=== PATIENT | female | born 1930 | race African-American/Black ===

== ENCOUNTER 2021-01-25 14:58 | Observation (INO) ==
[2021-01-25 16:23] LABS: Bilirubin,Urine Negative (Negative); Blood, Urine Negative (Negative); Glucose,Urine (UA) Negative (Negative); Hyaline Casts,Urine 24 /LPF (0-3); Ketones,Urine Negative (Negative); Mucus,Urine Occasional /LPF (Occasional); Nitrite,Urine Negative (Negative); Protein,Urine Negative; RBC,Urine <1 /HPF (0-4); Squamous Epithelial Cell,Urine Occasional /HPF (0-10); Urine Appearance CLEAR (Clear); Urine Color Yellow (Yellow); Urine Specific Gravity 1.021 (1.001-1.035); Urine Urobilinogen < 2.0 EU/DL (0.2-1.0)
[2021-01-25 16:47] LABS: Albumin 3.7 G/DL (3.4-5.0); Bilirubin,Total 0.7 MG/DL (0.20-1.00); Calcium 10.3 MG/DL (8.5-10.1); Osmolality,Calculated 263.8 MOS/KG (273-304); Potassium 3.7 MMOL/L (3.5-5.1); Total Protein 8.6 G/DL (6.4-8.2)
[2021-01-25 17:14] LABS: Basophils % 0.1 % (0.0-0.8); Eosinophils % 0.2 % (0.00-10.9); Hemoglobin 14.4 GM/DL (12.0-16.0); Immature Granulocytes % 0.5 %; Immature Granulocytes Absolute 0.05 #; Lymphocytes # 1.4 10*3/uL (1.4-4.0); Lymphocytes % 13.9 % (21.3-54.2); Mean Corpuscular HGB Conc 32.7 GM/DL (32-36); Mean Corpuscular Volume 86.3 FL (87-102); Neutrophils % 77.3 % (38.7-73.9); Platelet Count 242 T/CUMM (130-400); Red Cell Distribution Width 12.7 % (9.3-17.3)
[2021-01-25] MEDS ORDERED: SODIUM CHLORIDE 0.9% 1,000 ML IV STA (17:28)
[2021-01-25] MEDS ORDERED: DEXTROSE 50% 25 GM/50 ML VIAL IV PRN (17:54)
[2021-01-25] MEDS ORDERED: ACETAMINOPHEN 325 MG TABLET PO PRN (17:54)
[2021-01-25] MEDS ORDERED: ONDANSETRON 4 MG/2 ML VIAL IV PRN (17:54)
[2021-01-25] MEDS ORDERED: GLUCAGON 1 MG VIAL IM PRN (17:54)
[2021-01-25] MEDS ORDERED: ENOXAPARIN 40 MG/0.4 ML SYRINGE SUBCUT SCH (18:00)
[2021-01-25] MEDS: SODIUM CHLORIDE 0.9% 1,000 ML IV SCH (20:15)
[2021-01-25] MEDS: INSULIN REGULAR 100 UNIT/ML SUBCUT SCH (23:08)
[2021-01-26 07:42] LABS: Bilirubin,Total 0.7 MG/DL (0.20-1.00); Calcium 9.3 MG/DL (8.5-10.1); Total Protein 6.7 G/DL (6.4-8.2)
[2021-01-26] MEDS ORDERED: SODIUM CHLOR 0.9% KCL 40 MEQ 40 MEQ/1,000 ML BAG IV SCH (08:30)
[2021-01-26] MEDS ORDERED: PANTOPRAZOLE 40 MG TABLET PO SCH (09:00)
[2021-01-26] MEDS ORDERED: ASPIRIN EC 81 MG TABLET PO SCH (09:00)
[2021-01-26] MEDS ORDERED: ENALAPRIL 20 MG TABLET PO SCH (09:00)
[2021-01-26] MEDS: SODIUM CHLORIDE 0.9% 1,000 ML IV SCH (09:15)
[2021-01-26] MEDS: INSULIN REGULAR 100 UNIT/ML SUBCUT SCH ×2 (09:16→13:55)
[2021-01-26] MEDS ORDERED: POTASSIUM CHLORIDE 20 MEQ TABLET PO ONE (10:13)
[2021-01-26 12:26] VITALS: BP 129/81
[2021-01-26] MEDS ORDERED: SIMVASTATIN 20 MG TABLET PO SCH (19:00)
== END 2021-01-26 14:15 | disposition home health service (06) ==
LOC: EDUNIT# → EDBD → N.ED 14:58 → N.EDINP 14:58 → N.4E 21:36
PROVIDERS: ADMIT Internal Medicine; ATTEND Internal Medicine

== ENCOUNTER 2021-02-15 11:09 | Observation (INO) ==
[2021-02-15] MEDS ORDERED: SODIUM CHLORIDE 0.9% 500 ML IV STA (12:36)
[2021-02-15 12:44] LABS: Basophils % 0.2 % (0.0-0.8); Eosinophils % 0.1 % (0.00-10.9); Hematocrit 44.5 VOL% (35.7-47.0); Hemoglobin 14.4 GM/DL (12.0-16.0); Immature Granulocytes % 0.8 %; Lymphocytes # 1.4 10*3/uL (1.4-4.0); Lymphocytes % 11.4 % (21.3-54.2); Mean Corpuscular HGB Conc 32.4 GM/DL (32-36); Mean Corpuscular Volume 88.5 FL (87-102); Monocytes % 5.9 % (1.7-12.7); Neutrophils % 81.6 % (38.7-73.9); Platelet Count 271 T/CUMM (130-400); Red Blood Count 5.03 MC/CUMM (3.8-5.5); Red Cell Distribution Width 14.3 % (9.3-17.3); White Blood Count 12.4 T/CUMM (4-12)
[2021-02-15 12:54] LABS: INR 1.1; PT Patient Result 12.4 SECS (10.5-12.0); Partial Thromboplastin Time 22.2 SECS (23.9-33.8)
[2021-02-15 13:14] LABS: Albumin 3.3 G/DL (3.4-5.0); Bilirubin,Total 0.6 MG/DL (0.20-1.00); Calcium 10.7 MG/DL (8.5-10.1); Osmolality,Calculated 288.4 MOS/KG (273-304); Potassium 3.7 MMOL/L (3.5-5.1); Total Protein 7.9 G/DL (6.4-8.2)
[2021-02-15 13:21] LABS: Bilirubin,Urine Negative (Negative); Blood, Urine Negative (Negative); Glucose,Urine (UA) Negative (Negative); Ketones,Urine 20 mg/dL (Negative); Mucus,Urine Many /LPF (Occasional); Nitrite,Urine Negative (Negative); Protein,Urine 30 MG/DL; RBC,Urine 1 /HPF (0-4); Urine Appearance CLEAR (Clear); Urine Color Yellow (Yellow); Urine Specific Gravity 1.027 (1.001-1.035); Urine Urobilinogen < 2.0 EU/DL (0.2-1.0)
[2021-02-15] MEDS ORDERED: GLUCAGON 1 MG VIAL IM PRN (14:39)
[2021-02-15] MEDS ORDERED: DEXTROSE 50% 25 GM/50 ML VIAL IV PRN (14:39)
[2021-02-15] MEDS ORDERED: ACETAMINOPHEN 325 MG TABLET PO PRN (14:39)
[2021-02-15] MEDS ORDERED: hydrALAZINE 20 MG/1 ML VIAL IV PRN (14:39)
[2021-02-15] MEDS ORDERED: ONDANSETRON 4 MG/2 ML VIAL IV PRN (14:39)
[2021-02-15] MEDS ORDERED: ALBUTEROL 2.5 MG/3 ML NEB RESP TX PRN (14:39)
[2021-02-15] MEDS ORDERED: DOCUSATE SODIUM 100 MG CAPSULE PO PRN (14:39)
[2021-02-15] MEDS ORDERED: MAGNESIUM SULF RIDER 2 GM/50 ML PREMIX IV PRN (14:56)
[2021-02-15] MEDS ORDERED: MAGNESIUM SULF RIDER 4 GM/100 ML PREMIX IV PRN (14:56)
[2021-02-15] MEDS: SODIUM CHLORIDE 0.9% 1,000 ML IV SCH (15:30)
[2021-02-15] MEDS: CIPROFLOXACIN INJ 400 MG/200 ML PREMIX IV SCH (15:30)
[2021-02-15] MEDS: prednisoLONE ACETATE 1% OPH SUSP 5 ML BOTTLE LEFT EYE SCH ×2 (19:46→20:39)
[2021-02-15] MEDS: metroNIDAZOLE INJ 500 MG/100 ML PREMIX IV SCH (19:46)
[2021-02-15] MEDS: DORZOLAMIDE/TIMOLOL OPH SOLN 10 ML BOTTLE LEFT EYE SCH (20:39)
[2021-02-15] MEDS: ENOXAPARIN 40 MG/0.4 ML SYRINGE SUBCUT SCH (20:39)
[2021-02-15] MEDS: DONEPEZIL 10 MG TABLET PO SCH ×2 (20:39)
[2021-02-15] MEDS: traZODone 50 MG TABLET PO SCH ×2 (20:39)
[2021-02-15] MEDS: MEMANTINE 10 MG TABLET PO SCH ×2 (20:39)
[2021-02-16] MEDS: metroNIDAZOLE INJ 500 MG/100 ML PREMIX IV SCH ×4 (02:24→20:25)
[2021-02-16] MEDS: CIPROFLOXACIN INJ 400 MG/200 ML PREMIX IV SCH ×2 (03:29→14:34)
[2021-02-16 04:53] LABS: Basophils % 0.2 % (0.0-0.8); Eosinophils # 0.1 10*3/uL (0.0-0.87); Eosinophils % 0.5 % (0.00-10.9); Hematocrit 43.9 VOL% (35.7-47.0); Hemoglobin 13.5 GM/DL (12.0-16.0); Immature Granulocytes % 0.7 %; Immature Granulocytes Absolute 0.07 #; Lymphocytes # 1.6 10*3/uL (1.4-4.0); Lymphocytes % 16.5 % (21.3-54.2); Mean Corpuscular HGB Conc 30.8 GM/DL (32-36); Mean Corpuscular Volume 90.9 FL (87-102); Mean Platelet Volume 10.8 FL (9.6-12.0); Monocytes % 6.4 % (1.7-12.7); Neutrophils % 75.7 % (38.7-73.9); Platelet Count 219 T/CUMM (130-400); Red Blood Count 4.83 MC/CUMM (3.8-5.5); Red Cell Distribution Width 14.1 % (9.3-17.3); White Blood Count 9.8 T/CUMM (4-12)
[2021-02-16 05:15] LABS: Calcium 10.2 MG/DL (8.5-10.1); Osmolality,Calculated 283.4 MOS/KG (273-304); Potassium 3.2 MMOL/L (3.5-5.1); Risk Ratio 4.69; VLDL Cholesterol 20.8 MG/DL
[2021-02-16] MEDS: SODIUM CHLORIDE 0.9% 1,000 ML IV SCH ×4 (07:17→23:36)
[2021-02-16] MEDS: DORZOLAMIDE/TIMOLOL OPH SOLN 10 ML BOTTLE LEFT EYE SCH ×3 (07:57→20:26)
[2021-02-16] MEDS: VITAMIN E 400 UNIT CAPSULE PO SCH ×2 (07:58→09:16)
[2021-02-16] MEDS: POTASSIUM CHLORIDE 20 MEQ TABLET PO PRN ×3 (07:58→16:50)
[2021-02-16] MEDS: prednisoLONE ACETATE 1% OPH SUSP 5 ML BOTTLE LEFT EYE SCH ×5 (07:58→20:26)
[2021-02-16] MEDS: ENALAPRIL 20 MG TABLET PO SCH ×2 (07:59→09:15)
[2021-02-16] MEDS: ANASTROZOLE 1 MG TABLET PO SCH ×2 (07:59→09:14)
[2021-02-16] MEDS: LEVOTHYROXINE 25 MCG TABLET PO SCH ×2 (07:59→09:15)
[2021-02-16] MEDS: MEMANTINE 10 MG TABLET PO SCH ×3 (07:59→20:26)
[2021-02-16] MEDS: PANTOPRAZOLE 40 MG TABLET PO SCH ×2 (07:59→09:15)
[2021-02-16] MEDS: ASPIRIN EC 81 MG TABLET PO SCH ×2 (08:00→09:14)
[2021-02-16] MEDS: ENOXAPARIN 40 MG/0.4 ML SYRINGE SUBCUT SCH (20:25)
[2021-02-16] MEDS: traZODone 50 MG TABLET PO SCH (20:25)
[2021-02-17] MEDS: metroNIDAZOLE INJ 500 MG/100 ML PREMIX IV SCH ×2 (01:16→08:29)
[2021-02-17] MEDS: CIPROFLOXACIN INJ 400 MG/200 ML PREMIX IV SCH (02:56)
[2021-02-17 07:14] VITALS: BP 135/72
[2021-02-17] MEDS: ENALAPRIL 20 MG TABLET PO SCH (08:29)
[2021-02-17] MEDS: LEVOTHYROXINE 25 MCG TABLET PO SCH (08:29)
[2021-02-17] MEDS: ANASTROZOLE 1 MG TABLET PO SCH (08:29)
[2021-02-17] MEDS: ASPIRIN EC 81 MG TABLET PO SCH (08:29)
[2021-02-17] MEDS: PANTOPRAZOLE 40 MG TABLET PO SCH (08:29)
[2021-02-17] MEDS: MEMANTINE 10 MG TABLET PO SCH (08:29)
[2021-02-17] MEDS: VITAMIN E 400 UNIT CAPSULE PO SCH (08:29)
[2021-02-17] MEDS: SODIUM CHLORIDE 0.9% 1,000 ML IV SCH (08:30)
[2021-02-17] MEDS: DORZOLAMIDE/TIMOLOL OPH SOLN 10 ML BOTTLE LEFT EYE SCH (08:32)
[2021-02-17] MEDS: prednisoLONE ACETATE 1% OPH SUSP 5 ML BOTTLE LEFT EYE SCH ×2 (08:32→13:10)
[2021-02-17] MEDS ORDERED: metroNIDAZOLE 500 MG TABLET PO SCH (17:00)
[2021-02-17] MEDS ORDERED: CIPROFLOXACIN 100 MG/ML 100 ML/BOTTLE PO SCH (21:00)
== END 2021-02-17 12:20 | disposition home health service (06) ==
LOC: EDBD → EDUNIT# → N.EDINP 11:09 → N.ED 11:09 → SUATTDRO 14:39 → N.EDINP 16:05 → N.3E 16:51
PROVIDERS: ADMIT Internal Medicine; ATTEND Internal Medicine

== ENCOUNTER 2021-03-30 00:41 | Inpatient (IN) ==
[2021-03-30] MEDS ORDERED: PANTOPRAZOLE 40 MG VIAL IV STA (01:00)
[2021-03-30 01:33] LABS: Basophils % 0.1 % (0.0-0.8); Hematocrit 42.2 VOL% (35.7-47.0); Hemoglobin 13.9 GM/DL (12.0-16.0); Immature Granulocytes % 1.2 %; Mean Corpuscular HGB Conc 32.9 GM/DL (32-36); Mean Corpuscular Volume 85.4 FL (87-102); Mean Platelet Volume 10.1 FL (9.6-12.0); Monocytes % 4.6 % (1.7-12.7); Neutrophils % 88.1 % (38.7-73.9); Platelet Count 249 T/CUMM (130-400); Red Blood Count 4.94 MC/CUMM (3.8-5.5); Red Cell Distribution Width 14.9 % (9.3-17.3); White Blood Count 16.4 T/CUMM (4-12)
[2021-03-30 02:02] LABS: Albumin 2.6 G/DL (3.4-5.0); Bilirubin,Total 0.9 MG/DL (0.20-1.00); Calcium 10.4 MG/DL (8.5-10.1); Osmolality,Calculated 279.4 MOS/KG (273-304); Total Protein 7.4 G/DL (6.4-8.2)
[2021-03-30 02:04] LABS: Potassium 2.4 MMOL/L (3.5-5.1)
[2021-03-30] MEDS ORDERED: POTASSIUM CHLORIDE 20 MEQ PACK PO STA (02:10)
[2021-03-30] MEDS ORDERED: ONDANSETRON 4 MG/2 ML VIAL ONE (02:30)
[2021-03-30] MEDS ORDERED: ONDANSETRON 4 MG/2 ML VIAL IV ONE (02:31)
[2021-03-30] MEDS ORDERED: DEXTROSE 50% 25 GM/50 ML VIAL IV PRN (03:40)
[2021-03-30] MEDS ORDERED: GLUCAGON 1 MG VIAL IM PRN (03:40)
[2021-03-30] MEDS ORDERED: CIPROFLOXACIN INJ 400 MG/200 ML PREMIX IV SCH (04:30)
[2021-03-30] MEDS: SODIUM CHLOR 0.9% KCL 40 MEQ 40 MEQ/1,000 ML BAG IV SCH ×4 (04:44→22:41)
[2021-03-30] MEDS: LEVOFLOXACIN INJ 500 MG/100 ML PREMIX IV SCH (08:23)
[2021-03-30] MEDS: METRONIDAZOLE IV SCH ×2 (08:23→09:53)
[2021-03-30] MEDS: PANTOPRAZOLE 40 MG VIAL IV SCH ×2 (10:39→20:29)
[2021-03-30 14:17] LABS: Hematocrit 42.4 VOL% (35.7-47.0); Hemoglobin 13.4 GM/DL (12.0-16.0)
[2021-03-30 14:36] LABS: Calcium 9.8 MG/DL (8.5-10.1); Potassium 3.2 MMOL/L (3.5-5.1)
[2021-03-30] MEDS: POTASSIUM CHLORIDE RIDER 10 MEQ/100 ML PREMIX IV PRN ×3 (14:56→20:28)
[2021-03-30] MEDS: prednisoLONE ACETATE 1% OPH SUSP 5 ML BOTTLE LEFT EYE SCH ×2 (16:18→20:33)
[2021-03-30] MEDS: metroNIDAZOLE INJ 500 MG/100 ML PREMIX IV SCH (16:18)
[2021-03-30] MEDS: DORZOLAMIDE/TIMOLOL OPH SOLN 10 ML BOTTLE LEFT EYE SCH (20:30)
[2021-03-30] MEDS: traZODone 50 MG TABLET PO SCH (20:32)
[2021-03-30] MEDS: MEMANTINE 10 MG TABLET PO SCH (20:32)
[2021-03-30] MEDS: ONDANSETRON 4 MG/2 ML VIAL IV PRN (21:48)
[2021-03-31] MEDS: metroNIDAZOLE INJ 500 MG/100 ML PREMIX IV SCH ×3 (00:43→16:45)
[2021-03-31] MEDS: ONDANSETRON 4 MG/2 ML VIAL IV PRN (01:12)
[2021-03-31 06:00] LABS: Basophils % 0.2 % (0.0-0.8); Hematocrit 37.3 VOL% (35.7-47.0); Hemoglobin 12.1 GM/DL (12.0-16.0); Immature Granulocytes % 0.6 %; Immature Granulocytes Absolute 0.08 #; Lymphocytes # 1.2 10*3/uL (1.4-4.0); Lymphocytes % 9.6 % (21.3-54.2); Mean Corpuscular HGB Conc 32.4 GM/DL (32-36); Mean Corpuscular Volume 87.8 FL (87-102); Mean Platelet Volume 10.7 FL (9.6-12.0); Monocytes % 8.6 % (1.7-12.7); NRBC # 0.02 10*3/uL; Platelet Count 224 T/CUMM (130-400); Red Blood Count 4.25 MC/CUMM (3.8-5.5); Red Cell Distribution Width 15.9 % (9.3-17.3); White Blood Count 12.3 T/CUMM (4-12)
[2021-03-31] MEDS: LEVOFLOXACIN INJ 500 MG/100 ML PREMIX IV SCH (06:10)
[2021-03-31] MEDS: LEVOTHYROXINE 25 MCG TABLET PO SCH (06:10)
[2021-03-31 06:27] LABS: Band Neutrophils 4 % (0-10); Lymphocytes 17 % (20-55); Platelet Estimate Normal; Segmented Neutrophils 73 % (50-85); Total Cells Counted 100
[2021-03-31 07:22] LABS: Albumin 2.1 G/DL (3.4-5.0); Bilirubin,Total 0.8 MG/DL (0.20-1.00); Calcium 9.7 MG/DL (8.5-10.1); Osmolality,Calculated 289.5 MOS/KG (273-304); Potassium 4.2 MMOL/L (3.5-5.1); Total Protein 6.5 G/DL (6.4-8.2)
[2021-03-31] MEDS: DORZOLAMIDE/TIMOLOL OPH SOLN 10 ML BOTTLE LEFT EYE SCH ×2 (09:21→20:44)
[2021-03-31] MEDS: PANTOPRAZOLE 40 MG VIAL IV SCH ×2 (09:21→20:45)
[2021-03-31] MEDS: prednisoLONE ACETATE 1% OPH SUSP 5 ML BOTTLE LEFT EYE SCH ×4 (09:22→20:45)
[2021-03-31] MEDS: MEMANTINE 10 MG TABLET PO SCH ×2 (09:25→20:44)
[2021-03-31] MEDS: ENALAPRIL 20 MG TABLET PO SCH (09:25)
[2021-03-31] MEDS: SODIUM CHLOR 0.9% KCL 40 MEQ 40 MEQ/1,000 ML BAG IV SCH (15:07)
[2021-03-31] MEDS: traZODone 50 MG TABLET PO SCH (20:44)
[2021-04-01] MEDS: metroNIDAZOLE INJ 500 MG/100 ML PREMIX IV SCH ×3 (01:34→17:05)
[2021-04-01] MEDS: SODIUM CHLOR 0.9% KCL 40 MEQ 40 MEQ/1,000 ML BAG IV SCH ×2 (04:37→17:09)
[2021-04-01] MEDS: LEVOFLOXACIN INJ 500 MG/100 ML PREMIX IV SCH (05:30)
[2021-04-01] MEDS: LEVOTHYROXINE 25 MCG TABLET PO SCH (06:04)
[2021-04-01 07:08] LABS: Calcium 9.4 MG/DL (8.5-10.1); Osmolality,Calculated 297.7 MOS/KG (273-304); Potassium 3.9 MMOL/L (3.5-5.1)
[2021-04-01 07:37] LABS: Basophils % 0.3 % (0.0-0.8); Hemoglobin 11.3 GM/DL (12.0-16.0); Immature Granulocytes % 2.6 %; Immature Granulocytes Absolute 0.34 #; Lymphocytes # 1.2 10*3/uL (1.4-4.0); Lymphocytes % 8.8 % (21.3-54.2); Mean Corpuscular HGB Conc 31.4 GM/DL (32-36); Mean Corpuscular Volume 90.9 FL (87-102); Mean Platelet Volume 10.1 FL (9.6-12.0); Monocytes % 6.5 % (1.7-12.7); NRBC # 0.05 10*3/uL; Neutrophils % 81.8 % (38.7-73.9); Platelet Count 208 T/CUMM (130-400); Red Blood Count 3.96 MC/CUMM (3.8-5.5); Red Cell Distribution Width 16.8 % (9.3-17.3); White Blood Count 13.1 T/CUMM (4-12)
[2021-04-01 08:01] LABS: Band Neutrophils 2 % (0-10); Hypochromasia 1+; Lymphocytes 15 % (20-55); Microcytosis 1+; Platelet Estimate Adequate; Segmented Neutrophils 78 % (50-85); Total Cells Counted 100
[2021-04-01] MEDS: MEMANTINE 10 MG TABLET PO SCH ×2 (09:02→21:18)
[2021-04-01] MEDS: PANTOPRAZOLE 40 MG VIAL IV SCH ×2 (09:02→21:18)
[2021-04-01] MEDS: ENALAPRIL 20 MG TABLET PO SCH (09:02)
[2021-04-01] MEDS: DORZOLAMIDE/TIMOLOL OPH SOLN 10 ML BOTTLE LEFT EYE SCH ×2 (09:02→21:08)
[2021-04-01] MEDS: prednisoLONE ACETATE 1% OPH SUSP 5 ML BOTTLE LEFT EYE SCH ×4 (09:03→21:18)
[2021-04-01] MEDS: ONDANSETRON 4 MG/2 ML VIAL IV PRN (13:14)
[2021-04-01] MEDS: MULTIVITAMIN LIQUID (CENTRUM) 60 ML BOTTLE PO SCH (17:06)
[2021-04-01] MEDS: METOCLOPRAMIDE 10 MG/2 ML VIAL IV SCH (17:15)
[2021-04-01] MEDS: traZODone 50 MG TABLET PO SCH (21:18)
[2021-04-02] MEDS: METOCLOPRAMIDE 10 MG/2 ML VIAL IV SCH ×2 (01:00→05:17)
[2021-04-02] MEDS: metroNIDAZOLE INJ 500 MG/100 ML PREMIX IV SCH ×3 (01:45→17:11)
[2021-04-02] MEDS: LEVOTHYROXINE 25 MCG TABLET PO SCH (06:14)
[2021-04-02] MEDS: LEVOFLOXACIN INJ 500 MG/100 ML PREMIX IV SCH (06:17)
[2021-04-02 06:53] LABS: Basophils # 0.1 10*3/uL (0.0-0.2); Basophils % 0.7 % (0.0-0.8); Eosinophils % 0.1 % (0.00-10.9); Hematocrit 40.7 VOL% (35.7-47.0); Hemoglobin 12.3 GM/DL (12.0-16.0); Immature Granulocytes % 5.8 %; Immature Granulocytes Absolute 0.84 #; Lymphocytes # 1.3 10*3/uL (1.4-4.0); Mean Corpuscular HGB Conc 30.2 GM/DL (32-36); Mean Corpuscular Volume 94.2 FL (87-102); Mean Platelet Volume 11.2 FL (9.6-12.0); Monocytes % 6.4 % (1.7-12.7); Red Blood Count 4.32 MC/CUMM (3.8-5.5); Red Cell Distribution Width 17.5 % (9.3-17.3)
[2021-04-02 06:59] LABS: Platelet Count 106 T/CUMM (130-400); White Blood Count 14.6 T/CUMM (4-12)
[2021-04-02 07:23] LABS: Band Neutrophils 2 % (0-10); Hypochromasia Slight; Lymphocytes 12 % (20-55); Microcytosis Slight; Nucleated Red Blood Cells 1 (0-5); Platelet Estimate Decreased; Segmented Neutrophils 81 % (50-85); Total Cells Counted 100
[2021-04-02 07:55] LABS: Calcium 9.1 MG/DL (8.5-10.1); Osmolality,Calculated 297.4 MOS/KG (273-304); Potassium 4.2 MMOL/L (3.5-5.1)
[2021-04-02] MEDS: OMEPRAZOLE ODT 20 MG TABLET PER TUBE SCH ×2 (10:34→22:28)
[2021-04-02] MEDS: ONDANSETRON 4 MG/2 ML VIAL IV PRN (10:34)
[2021-04-02] MEDS: MEMANTINE 10 MG TABLET PO SCH ×2 (10:35→22:28)
[2021-04-02] MEDS: ENALAPRIL 20 MG TABLET PO SCH (10:35)
[2021-04-02] MEDS: MULTIVITAMIN LIQUID (CENTRUM) 60 ML BOTTLE PO SCH (10:36)
[2021-04-02] MEDS: DORZOLAMIDE/TIMOLOL OPH SOLN 10 ML BOTTLE LEFT EYE SCH ×2 (10:36→22:38)
[2021-04-02] MEDS: SODIUM CHLOR 0.9% KCL 40 MEQ 40 MEQ/1,000 ML BAG IV SCH (10:37)
[2021-04-02] MEDS: prednisoLONE ACETATE 1% OPH SUSP 5 ML BOTTLE LEFT EYE SCH ×4 (10:38→22:44)
[2021-04-02] MEDS ORDERED: METOCLOPRAMIDE 10 MG/10 ML UDCUP PO SCH (11:30)
[2021-04-02] MEDS ORDERED: METOCLOPRAMIDE 10 MG/10 ML UDCUP PEG SCH (11:30)
[2021-04-02] MEDS: METOCLOPRAMIDE 10 MG/10 ML UDCUP PEG SCH ×3 (11:41→22:27)
[2021-04-02] MEDS: SODIUM BICARBONATE 650 MG TABLET PO SCH (22:28)
[2021-04-02] MEDS: traZODone 50 MG TABLET PO SCH (22:29)
[2021-04-03] MEDS: metroNIDAZOLE INJ 500 MG/100 ML PREMIX IV SCH ×2 (01:13→08:27)
[2021-04-03] MEDS: LEVOFLOXACIN INJ 500 MG/100 ML PREMIX IV SCH ×2 (05:42→07:21)
[2021-04-03] MEDS: LEVOTHYROXINE 25 MCG TABLET PO SCH (05:42)
[2021-04-03 07:50] VITALS: BP 119/64
[2021-04-03] MEDS: METOCLOPRAMIDE 10 MG/10 ML UDCUP PEG SCH ×2 (08:28→11:07)
[2021-04-03] MEDS: ENALAPRIL 20 MG TABLET PO SCH (08:28)
[2021-04-03] MEDS: SODIUM BICARBONATE 650 MG TABLET PO SCH (08:28)
[2021-04-03] MEDS: OMEPRAZOLE ODT 20 MG TABLET PER TUBE SCH (08:28)
[2021-04-03] MEDS: MEMANTINE 10 MG TABLET PO SCH (08:28)
[2021-04-03] MEDS: DORZOLAMIDE/TIMOLOL OPH SOLN 10 ML BOTTLE LEFT EYE SCH (08:29)
[2021-04-03] MEDS: MULTIVITAMIN LIQUID (CENTRUM) 60 ML BOTTLE PO SCH (08:31)
[2021-04-03] MEDS: prednisoLONE ACETATE 1% OPH SUSP 5 ML BOTTLE LEFT EYE SCH (08:49)
[2021-04-03 09:01] LABS: Calcium 8.9 MG/DL (8.5-10.1); Osmolality,Calculated 299.3 MOS/KG (273-304)
[2021-04-03 09:20] LABS: Basophils % 0.2 % (0.0-0.8); Eosinophils % 0.1 % (0.00-10.9); Hematocrit 32.1 VOL% (35.7-47.0); Immature Granulocytes % 4.8 %; Immature Granulocytes Absolute 0.67 #; Lymphocytes # 1.3 10*3/uL (1.4-4.0); Lymphocytes % 9.6 % (21.3-54.2); Mean Corpuscular HGB Conc 31.8 GM/DL (32-36); Mean Corpuscular Volume 90.7 FL (87-102); Monocytes % 6.7 % (1.7-12.7); NRBC # 0.12 10*3/uL; Neutrophils % 78.6 % (38.7-73.9); Red Blood Count 3.54 MC/CUMM (3.8-5.5); Red Cell Distribution Width 17.9 % (9.3-17.3); White Blood Count 13.9 T/CUMM (4-12)
[2021-04-03 09:28] LABS: Hemoglobin 10.2 GM/DL (12.0-16.0)
[2021-04-03 09:29] LABS: Platelet Count 150 T/CUMM (130-400)
[2021-04-03 10:00] LABS: Band Neutrophils 7 % (0-10); Hypochromasia 1+; Lymphocytes 8 % (20-55); Microcytosis 1+; Nucleated Red Blood Cells 1 (0-5); Platelet Estimate Adequate; Polychromasia Slight; Segmented Neutrophils 71 % (50-85); Total Cells Counted 100
[2021-04-03] MEDS ORDERED: MAGNESIUM OXIDE 400 MG TABLET PO ONE (10:16)
[2021-04-04 09:22] LABS: Collection duration of stool Random h; Total Weight of Stool 3 g
== END 2021-04-03 12:27 | disposition hospice, home (50) | DRG 391 ==
LOC: EDUNIT# → EDBD → N.ED 00:41 → N.EDINP 03:40 → SUATTDRO 03:40 → N.5E 12:43
PROVIDERS: ADMIT Internal Medicine; ATTEND Internal Medicine